=== PATIENT | female | born 1940 | race Caucasian/White ===

== ENCOUNTER 2016-07-06 23:56 | Emergency (ER) | payer MEDICARE ==
[~2016-07-06] VITALS: Ht 152.4 cm; Wt 90.7 kg
[2016-07-07 00:05] VITALS: BP 163/91; PULSE 96; RESP 16; TEMP 97.6; O2SAT 97
--- NOTE | 2016-07-07 00:05 | NUR ---
Patient to ER bed 7 to gown for evaluation. Side rails up.
--- NOTE | 2016-07-07 00:10 | NUR ---
PT IS AOX4, C/O HEAD TRAUMA SECONDARY TO FALL 20 MINS PRIOR TO ER. PAIN SCALE 5/10. PT DENIES N/V, DIZZINESS. (-)KO.
[2016-07-07] MEDS ORDERED: GLU500 PO (00:18)
[2016-07-07] MEDS ORDERED: LISI-221 PO (00:18)
[2016-07-07] MEDS ORDERED: PRAV40TA63 PO (00:19)
[2016-07-07] MEDS ORDERED: AMLODIPINE PO (00:19)
[2016-07-07] MEDS ORDERED: ASPI-1063 PO (00:20)
--- NOTE | 2016-07-07 00:30 | NUR ---
ER at bedside examining patient.
[2016-07-07 03:00] VITALS: BP 138/75; PULSE 96; RESP 16; TEMP 97.6; O2SAT 97
--- NOTE | 2016-07-07 03:00 | NUR ---
Patient given written and verbal discharge instructions and verbalizes understanding. ER MD discussed with patient the results and treatment provided. Patient in stable condition. ID arm band removed. NO Rx of given. Patient educated on pain management and to follow up with PMD. Pain Scale 0/10. Opportunity for questions provided and answered.
== END 2016-07-07 03:00 | disposition home or self-care (01) ==
LOC: SED 23:56
DX: S00.03XA Contusion of scalp, initial encounter (principal); Z79.82 Long term (current) use of aspirin; W19.XXXA Unspecified fall, initial encounter; Y93.89 Activity, other specified; Y99.8 Other external cause status; Y92.89 Other specified places as the place of occurrence of the external cause
CPT/HCPCS: 70450-TC; 99284